=== PATIENT | male | born 1995 | race Two or more races ===

== ENCOUNTER 2022-08-13 05:50 | Emergency (ER) | payer BC ==
[~2022-08-13] VITALS: Ht 177.8 cm; Wt 67.0 kg
[2022-08-13] MEDS ORDERED: LORAZEPAM 2MG/ML CPJ IV STA (06:34)
[2022-08-13] MEDS ORDERED: CHLORDIAZEPOXIDE 25MG CAPSULE PO ONE (06:45)
[2022-08-13] MEDS ORDERED: SODIUM CHLORIDE 0.9% 1,000 ML IV ONE (06:45)
[2022-08-13 07:28] LABS: CHLORIDE 98 mEq/L (98-107)
[2022-08-13 07:32] LABS: BASOPHILS % 2.5 % (0.0-2.0); EOSINOPHILS % 9.4 % (0.0-5.0); HEMATOCRIT. 50.7 % (42.0-52.0); HEMOGLOBIN. 17.2 g/dL (14.0-18.0); LYMPHOCYTES % 36.2 % (20.0-50.0); MEAN CORPUSCULAR VOLUME 91.5 fL (80.0-94.0); MEAN PLATELET VOLUME 8.2 fl (7.4-10.4); MONOCYTES % 9.9 % (2.0-8.0); PLATELET 314 x1000/uL (130-400); RED BLOOD CELL COUNT 5.54 mill/uL (4.7-6.1); RED CELL DISTRIBUTION WIDTH 13.9 % (11.6-14.6)
[2022-08-13 07:37] LABS: ETHANOL BLOOD 105 mg/dL
[2022-08-13 07:50] VITALS: BP 123/83
[2022-08-13] MEDS ORDERED: L25 PO (08:03)
== END 2022-08-13 09:08 | disposition home or self-care (01) ==
LOC: ER 05:50
DX: F10.239 Alcohol dependence with withdrawal, unspecified (principal); Y90.5 Blood alcohol level of 100-119 mg/100 ml
CPT/HCPCS: 36415; 80053; 80320; 85025; 96374; 99283; J2060; J7030; Z7610; G0480